=== PATIENT | male | born 1995 | race Caucasian/White ===

== ENCOUNTER 2018-09-06 07:32 | Emergency (ER) | payer OTHER ==
[~2018-09-06] VITALS: Ht 182.9 cm; Wt 157.8 kg
[~2018-09-06 07:32] MED LIST: HYDROCODON-ACE1 EAC7 PO; ZOFRAN4 MG PO
[2018-09-06 09:10] VITALS: BP 147/85
== END 2018-09-06 09:11 | disposition home or self-care (01) ==
LOC: M.ERS 07:32
DX: S50.02XA Contusion of left elbow, initial encounter (principal); W10.8XXA Fall (on) (from) other stairs and steps, initial encounter; Y93.89 Activity, other specified; Y92.89 Other specified places as the place of occurrence of the external cause; Y99.8 Other external cause status

== ENCOUNTER 2018-09-27 10:45 | Emergency (ER) | payer OTHER ==
[~2018-09-27] VITALS: Ht 182.9 cm; Wt 112.5 kg
[2018-09-27 11:39] VITALS: BP 131/74
== END 2018-09-27 11:39 | disposition home or self-care (01) ==
LOC: M.ERS 10:45
DX: T20.46XA Corrosion of unspecified degree of forehead and cheek, initial encounter (principal); T20.49XA Corrosion of unspecified degree of multiple sites of head, face, and neck, initial encounter; T23.401A Corrosion of unspecified degree of right hand, unspecified site, initial encounter; Y93.89 Activity, other specified; Y92.89 Other specified places as the place of occurrence of the external cause; Y99.0 Civilian activity done for income or pay

== ENCOUNTER 2019-09-17 15:21 | Emergency (ER) | payer OTHER ==
[~2019-09-17] VITALS: Ht 182.9 cm; Wt 154.2 kg
[2019-09-17 16:13] VITALS: BP 157/95
== END 2019-09-17 16:14 | disposition home or self-care (01) ==
LOC: M.ERS 15:21
DX: Z04.1 Encounter for examination and observation following transport accident (principal); Z90.89 Acquired absence of other organs; Z98.890 Other specified postprocedural states

== ENCOUNTER 2019-10-27 15:47 | Emergency (ER) | payer OTHER ==
[~2019-10-27] VITALS: Ht 182.9 cm; Wt 172.4 kg
[2019-10-27] MEDS ORDERED: TYLENOL WITH CO1 TA1 PO (16:58)
[2019-10-27] MEDS ORDERED: LIDODERM1 EACH TRANSDERM (16:58)
[2019-10-27 17:07] VITALS: BP 133/84
== END 2019-10-27 17:07 | disposition home or self-care (01) ==
LOC: M.ERS 15:47
DX: M54.5 Low back pain (principal)

== ENCOUNTER 2020-01-11 15:03 | Emergency (ER) | payer OTHER ==
[~2020-01-11] VITALS: Ht 182.9 cm; Wt 147.4 kg
[~2020-01-11 15:03] MED LIST changes: +LIDODERM1 EACH TRANSDERM; +TYLENOL WITH CO1 TA1 PO
[2020-01-11 15:15] VITALS: BP 142/79
== END 2020-01-11 15:46 | disposition home or self-care (01) ==
LOC: M.ERS 15:03
DX: G89.18 Other acute postprocedural pain (principal); M79.671 Pain in right foot; Z79.899 Other long term (current) drug therapy

== ENCOUNTER 2020-07-09 11:00 | Emergency (ER) | payer OTHER ==
[~2020-07-09] VITALS: Ht 185.4 cm; Wt 158.8 kg
[2020-07-09 11:22] LABS: URINE BILIRUBIN NEGATIVE (Negative); URINE BLOOD NEGATIVE (Negative); URINE CLARITY CLEAR; URINE COLOR YELLOW; URINE GLUCOSE-RANDOM NEGATIVE (Negative); URINE KETONES NEGATIVE (Negative); URINE LEUKOCYTES-REFLEX NEGATIVE (Negative); URINE NITRITE-REFLEX NEGATIVE (Negative); URINE PROTEIN NEGATIVE (Negative); URINE SPECIFIC GRAVITY >= 1.030 (1.005-1.030); URINE UROBILINOGEN 0.2 E.U./dl (0.2-1.0)
[2020-07-09] MEDS ORDERED: ZOFRAN ODT4 MG PO (11:34)
[2020-07-09 11:50] VITALS: BP 148/86
== END 2020-07-09 11:51 | disposition home or self-care (01) ==
LOC: M.ERS 11:00
PROVIDERS: Nurse Practitioner Family
DX: Z02.79 Encounter for issue of other medical certificate (principal); R11.2 Nausea with vomiting, unspecified; Z98.890 Other specified postprocedural states; Z88.8 Allergy status to other drugs, medicaments and biological substances

== ENCOUNTER 2020-09-25 09:47 | Emergency (ER) | payer OTHER ==
[~2020-09-25] VITALS: Ht 180.3 cm; Wt 154.2 kg
[~2020-09-25 09:47] MED LIST changes: +ZOFRAN ODT4 MG PO
[2020-09-25 10:27] LABS: ABSOLUTE BASOPHILS 0.1 thou/uL (0.0-0.2); ABSOLUTE EOSINOPHILS 0.3 thou/uL (0.0-0.7); ABSOLUTE LYMPHOCYTES 3.7 thou/uL (0.8-5.3); ABSOLUTE MONOCYTES 0.5 thou/uL (0.0-1.2); ABSOLUTE NEUTROPHILS 3.6 thou/uL (1.6-8.1); BASOPHILS 1.3 %; HEMATOCRIT 51.5 % (42.0-52.0); HEMOGLOBIN 18.2 gm/dL (14.0-18.0); LYMPHOCYTES 44.9 %; MCH 31.8 pg (26.0-34.0); MCHC 35.3 g/dL (28.0-37.0); MCV 90.1 fL (80.0-100.0); MONOCYTES 5.8 %; MPV 8.4 fl. (7.2-11.1); NUCLEATED RBCS 0 /100WBC; PLATELET COUNT* 249 thou/uL (150-400); RBC 5.71 mil/uL (4.50-6.00); RDW-CV 13.3 % (10.5-14.5); WBC 8.2 thou/uL (4.0-11.0)
[2020-09-25 10:35] LABS: CALCIUM 9.4 mg/dL (8.5-10.1); CREATININE 0.8 mg/dL (0.6-1.3); POTASSIUM 4.2 mmol/L (3.5-5.1)
[2020-09-25 10:40] LABS: ALBUMIN 3.9 g/dL (3.4-5.0); TOTAL BILIRUBIN 0.5 mg/dL (<0.1-1.0); TOTAL PROTEIN 7.1 g/dL (6.4-8.2)
[2020-09-25 11:05] LABS: URINE BILIRUBIN NEGATIVE (Negative); URINE BLOOD NEGATIVE (Negative); URINE CLARITY CLEAR; URINE COLOR YELLOW; URINE GLUCOSE-RANDOM NEGATIVE (Negative); URINE KETONES NEGATIVE (Negative); URINE LEUKOCYTES-REFLEX NEGATIVE (Negative); URINE NITRITE-REFLEX NEGATIVE (Negative); URINE PROTEIN NEGATIVE (Negative); URINE UROBILINOGEN 0.2 E.U./dl (0.2-1.0)
[2020-09-25 12:23] VITALS: BP 124/77
--- NOTE | 2020-09-25 15:34 | EKG ---
[place] [address] ELECTROCARDIOGRAM REPORT Name: TERRI SHULTZ Room: [facility]#: [id number] Admission: 09/25/20 Attend Phys: Discharge: 09/25/20 Date of : [birth year] Date of Service: 09/25/20 1009 Report #: [id number] THIS REPORT FOR: //name// [facility] ED Test Date: 2020-09-25 Test Time: 10:09:11 Pat Name: TERRI SHULTZ Department: Room: Gender: Statistics Tutor: [place] : 1995 Requested By: Lenny Mace Order Number: [id number] MD: Maximo Umana Measurements Intervals [place] Rate: 77 P: 16 AL: 154 QRS: -5 QRSD: 86 T: 40 QT: 352 QTc: 399 Interpretive Statements Sinus rhythm Baseline wander in lead(s) II,III,aVF No previous ECG available for comparison Electronically Signed On 09-25-2020 15:34:44 [employer] by Maximo Umana [email or web address] <ELECTRONICALLY SIGNED> By: Maximo Umana MD, [facility] 09/25/20 1534 1009 1009 Maximo Umana MD, [facility] /EPI
== END 2020-09-25 12:24 | disposition home or self-care (01) ==
LOC: M.ERS 09:47
PROVIDERS: Emergency Medicine Emergency Medical Services
DX: R55 Syncope and collapse (principal); F17.210 Nicotine dependence, cigarettes, uncomplicated; Z88.8 Allergy status to other drugs, medicaments and biological substances

== ENCOUNTER 2021-09-19 08:53 | Emergency (ER) | payer OTHER ==
[~2021-09-19] VITALS: Ht 185.4 cm; Wt 172.4 kg
[2021-09-19 09:46] VITALS: BP 142/94
== END 2021-09-19 09:45 | disposition home or self-care (01) ==
LOC: M.ERS 08:53
DX: M75.102 Unspecified rotator cuff tear or rupture of left shoulder, not specified as traumatic (principal); Z88.8 Allergy status to other drugs, medicaments and biological substances